=== PATIENT | male | born 1935 | race Caucasian/White ===

== ENCOUNTER 2020-09-22 11:20 | Inpatient (IN) | payer MEDICARE ==
[~2020-09-22] VITALS: Ht 193 cm; Wt 81.7 kg
[~2020-09-22 11:20] MED LIST: RXHYDACE PO; RXPHEN200 PO; RXSULTRIDS PO; SULTRIDS PO
[2020-09-22 12:00] LABS: BASOPHILS ABSOLUTE AUTO 0.01 K/mm3 (0.00-0.23); BASOPHILS PERCENT AUTO 0 % (0-2); EOSINOPHILS PERCENT AUTO 0 % (0-6); Hematocrit 28.7 % (37.0-53.0); Hemoglobin 8.9 g/dL (13.5-17.5); IMMATURE GRAN ABSOLUTE AUTO 0.02 K/mm3 (0.00-0.10); IMMATURE GRAN PERCENT AUTO 0 % (0-1); LYMPHOCYTES ABSOLUTE AUTO 0.51 K/mm3 (0.84-5.20); LYMPHOCYTES PERCENT AUTO 7 % (21-46); MONOCYTES ABSOLUTE AUTO 0.43 K/mm3 (0.16-1.47); MONOCYTES PERCENT AUTO 6 % (4-13); Mean Corpuscular HGB 24.3 pg (26.0-34.0); Mean Corpuscular Volume 78 fL (80-100); Mean Platelet Volume 9.1 fL (9.1-12.4); NEUTROPHILS PERCENT AUTO 88 % (41-73); Platelet Count 344 K/mm3 (150-400); RDW Coefficient Variation 15.6 % (11.7-14.2); RDW Standard Deviation 44.5 fL (35.1-46.3); Red Blood Cell Count 3.67 M/mm3 (4.30-5.90); White Blood Cell Count 7.77 K/mm3 (4.00-11.30)
[2020-09-22 12:39] LABS: Albumin/Globulin Ratio 0.6 (0.8-1.8); Bilirubin, Total 0.6 mg/dL (0.1-1.0); Bun/Creatinine Ratio 26.4 (12.0-20.0); Calcium, Blood 8.9 mg/dL (8.5-10.1); Creatinine, Blood 1.78 mg/dL (0.60-1.20); Globulin, Blood 4.8 g/dL (2.2-4.0); Potassium, Blood 4.1 mmol/L (3.5-5.5); Total Protein, Blood 7.8 g/dL (6.4-8.2)
[2020-09-22 14:57] LABS: Source, Urine Clean Catch
[2020-09-22 15:06] LABS: Appearance, Urine Hazy (Clear); Bilirubin, Urine Neg (Neg); Blood, Urine 5+ (Neg); Color, Urine Yellow (P-Yellow); Glucose Qualitative, Urine Neg (Neg); Ketones, Urine Neg (Neg); Leukocyte Esterase, Urine 3+ (Neg); Nitrite, Urine Pos (Neg); Protein, Urine 3+ (Neg); Urobilinogen, Urine NORM (Normal)
[2020-09-22 15:28] LABS: Bacteria Many /hpf; Hyaline Casts 0-2 /lpf (0-2); Red Blood Cells, Urine 0-2 /hpf (0-2); Squamous Epithelial Cells Few /hpf (Few); White Blood Cells, Urine 50-100 /hpf (0-5)
[2020-09-22 17:23] LABS: Creatine Kinase MB Index 0.2 (0.0-4.0)
--- NOTE | 2020-09-22 21:32 | NUR ---
STOOL AND URINE IN HIS OWN CLOTHES. RN NOTIFIED
--- NOTE | 2020-09-22 21:53 | NUR ---
2049 PT IS LYING IN BED, DENIES ANY DISCOMFORT AT THIS TIME. NO APPARENT SIGNS OF DISTRESS. PT'S IF INFILTRATED, DC'D IV, PT WILL NOT LET US RESTART AN IV AT THIS TIME OR RUN IV FLUIDS. I WILL CHECK BACK AGAIN LATER. CALL LIGHT IS IN REACH. BED ALARM IS ON.
--- NOTE | 2020-09-22 23:42 | NUR ---
2200 PT LYING IN BED, EYES CLOSED, APPEARS TO BE RESTING. BREATHING IS EVEN, UNLABORED. NO APPARENT SIGNS OF DISTRESS. CALL LIGHT IS IN REACH. BED ALARM IS ON.
--- NOTE | 2020-09-23 03:39 | NUR ---
PT IS AAO X 3-4, OCCASIONALLY FORGETFUL. ON RA. DENIED ANY DISCOMFORT FOR THIS SHIFT.
--- NOTE | 2020-09-23 05:28 | NUR ---
PT LYING IN BED, REQUESTED AND RECIEVED TYLENOL. TEMP OF 100.6 AND REPORT OF PAIN ALL OVER. PT STILL REFUSING TO GET AN IV, BUT DID ALLOW LAB TO DRAW BLOOD. NO OTHER APPARENT SIGNS OF DISTRESS. CALL LIGHT IS IN REACH. BED ALARM IS ON. NO OTHER CHANGES THIS SHIFT.
[2020-09-23 05:50] LABS: BASOPHILS ABSOLUTE AUTO 0.01 K/mm3 (0.00-0.23); BASOPHILS PERCENT AUTO 0 % (0-2); EOSINOPHILS PERCENT AUTO 0 % (0-6); Hematocrit 29.6 % (37.0-53.0); Hemoglobin 8.9 g/dL (13.5-17.5); IMMATURE GRAN ABSOLUTE AUTO 0.02 K/mm3 (0.00-0.10); IMMATURE GRAN PERCENT AUTO 0 % (0-1); LYMPHOCYTES ABSOLUTE AUTO 0.84 K/mm3 (0.84-5.20); LYMPHOCYTES PERCENT AUTO 10 % (21-46); MONOCYTES ABSOLUTE AUTO 0.39 K/mm3 (0.16-1.47); MONOCYTES PERCENT AUTO 5 % (4-13); Mean Corpuscular HGB 23.5 pg (26.0-34.0); Mean Corpuscular HGB Conc 30.1 g/dL (31.5-36.5); Mean Corpuscular Volume 78 fL (80-100); Mean Platelet Volume 9.2 fL (9.1-12.4); NEUTROPHILS ABSOLUTE AUTO 6.97 K/mm3 (1.96-9.15); NEUTROPHILS PERCENT AUTO 85 % (41-73); Platelet Count 336 K/mm3 (150-400); RDW Coefficient Variation 15.6 % (11.7-14.2); RDW Standard Deviation 44.3 fL (35.1-46.3); Red Blood Cell Count 3.78 M/mm3 (4.30-5.90); White Blood Cell Count 8.23 K/mm3 (4.00-11.30)
[2020-09-23 06:27] LABS: Albumin, Blood 2.5 g/dL (3.4-5.0); Albumin/Globulin Ratio 0.6 (0.8-1.8); Bilirubin, Total 0.5 mg/dL (0.1-1.0); Bun/Creatinine Ratio 29.4 (12.0-20.0); Calcium, Blood 8.5 mg/dL (8.5-10.1); Creatinine, Blood 1.19 mg/dL (0.60-1.20); Globulin, Blood 4.5 g/dL (2.2-4.0); Potassium, Blood 3.8 mmol/L (3.5-5.5)
--- NOTE | 2020-09-23 19:31 | NUR ---
dr agreed to allow pt to continue to refuse to get an IV and changed medications to po, call light in reach, rm air, still very sensitive
--- NOTE | 2020-09-24 03:27 | NUR ---
SHIFT SUMMARY PT C/O DYSURIA AND PROLONGED TIME TO INITIATE A URINE STREAM AND EMPTY HIS BLADDER. BLADDER SCAN PERFORMED REVEALED 54ML IN BLADDER. PT REQUESTED AND RECEIVED TYLENOL 650 MG. TEMP 98.1 - 99.7. PT REPORTS SHAKING AND FEELING COLD, "FEEL LIKE I'M STANDING NAKED IN THE SNOW." VSS. SATING ABOVE 94% ON ROOM AIR. OCCASSIONAL DEEP COUGH THAT PRODUCES THICK SPUTUM. WILL CONTINUE TO MONITOR.
--- NOTE | 2020-09-24 04:07 | NUR ---
CORRESPONDENCE WITH PHYSICIAN PT C/O DYSURIA AND PAIN IN BLADDER AFTER VOIDING. RN PLACED CALL TO DR. CASTELLANOS TO REQUEST ORDER FOR PRN BLADDER SCAN. WILL UPDATE ORDERS.
[2020-09-24 04:58] LABS: Hematocrit 26.9 % (37.0-53.0); Hemoglobin 8.1 g/dL (13.5-17.5); Mean Corpuscular HGB 23.8 pg (26.0-34.0); Mean Corpuscular HGB Conc 30.1 g/dL (31.5-36.5); Mean Corpuscular Volume 79 fL (80-100); Mean Platelet Volume 9.3 fL (9.1-12.4); Platelet Count 283 K/mm3 (150-400); RDW Coefficient Variation 15.7 % (11.7-14.2); White Blood Cell Count 3.83 K/mm3 (4.00-11.30)
[2020-09-24 05:43] LABS: Bun/Creatinine Ratio 32.8 (12.0-20.0); Creatinine, Blood 1.16 mg/dL (0.60-1.20); Percent Saturation 3.6 % (20.0-50.0); Potassium, Blood 3.7 mmol/L (3.5-5.5)
--- NOTE | 2020-09-24 18:32 | NUR ---
STILL very sensitive to pain, still declining to have iv medication even when it was explained to him that it would enhance his chanced to meet his stated goal of getting well enough to get out. Dr requested that pt be assisted into a chair, pt stated the chair was to low for him to sit in or get out of, bed was higher and he was sitting on the side of it but he continued to insist that he could not stand because the chair was to low...... even though told he could just sit back on the bed, call light in reach, rm , will continue to monitor and treat until share report with noc nurse
--- NOTE | 2020-09-25 03:07 | NUR ---
PT IS RESTING IN BED. HE HAS NOT HAD A BM FOR 3 DAYS, BUT DENIES STOOL SOFTENERS OFFERED PER ORDERS. NO COMPLAINTS OF DYSURIA THIS SHIFT, C/O PAIN IN HIS LUNGS AND FEELING COLD. PT IS SATING ABOVE 94% ON ROOM AIR. LUNG SOUNDS ARE DIMINISHED BUT CLEAR. HE IS A&O X 2-3, REQUIRING REMINDERS OF WHY HE IS IN THE HOSPITAL. PT IS ABLE TO VOID USING A URINAL. WILL CONTINUE TO MONITOR.
--- NOTE | 2020-09-25 04:58 | NUR ---
SHIFT SUMMARY NO ACUTE CHANGES. PT C/O GENERALIZED PAIN, WHICH IS TREATED WITH TYLENOL PRN. VSS. ROOM AIR, SATING ABOVE 94%. OCCASSIONAL DEEP COUGH, NON PRODUCTIVE. ABLE TO VOID USING URINAL. WILL CONTINUE TO MONITOR.
--- NOTE | 2020-09-25 18:19 | NUR ---
alert and orintated to self and location but forgetful, able to talk into blood draw, denies declining it, still very sensitive squeezed rn's hand while glass washer worked quickly, stated the elastic band around his arm was too cold, call light in reach, rm air, refused to even try to move from bed today, will continue to monitor and treat until sbar given to noc nurse
--- NOTE | 2020-09-26 03:38 | NUR ---
RN APPLIED OXYGEN 1LPM VIA NC DUE TO PT'S SATS 89-90% ON ROOM AIR. PT STATED, "I DON'T LIKE PLASTIC IN MY BODY" AND "IT HURTS". AFTER EXPLAINING WHY THE OXYGEN WAS APPLIED, PT STATED, "I ALREADY HAVE PLENTY OF OXYGEN." NC LEFT CLOSE TO BEDSIDE WITHIN PT'S REACH. AT THIS TIME, PT IS NOT WEARING THE OXYGEN, CONTINUES TO SAT 89-90% ON ROOM AIR.
--- NOTE | 2020-09-26 04:08 | NUR ---
SHIFT SUMMARY PT CONTINUED TO HAVE SUBJECTIVE COMPLAINTS OF COLD - WARM BLANKETS APPLIED, THERMOSTAT INCREASED IN PT'S ROOM. STATES "IT HURTS EVERYWHERE." TREATED PAIN WITH TYLENOL PRN. NO SIGNIFICANT PO INTAKE, DRANK ONE ENSURE THIS SHIFT. NO TELE, NO IV ACCESS. VOIDS IN URINAL AND ATTENDS. WILL CONTINUE TO MONITOR UNTIL GIVING BEDSIDE REPORT TO ONCOMING DAY RN.
--- NOTE | 2020-09-26 17:22 | NUR ---
SHIFT SUMMARY PT APPEARS FATIGUED AND WITHDRAWN THIS SHIFT. HE STATES THAT "EVERYTHING HURTS" AND THAT HE "DOES NOT KNOW HOW HE CAN STAND" IN ORDER TO DISCHARGE. VSS. PERIODS OF CONFUSION AND ALTERED MENTAL STATUS. STATES THAT THE "TABLE HURTS". CALLS MADE TO BOTH [facility] AND [facility] IN ORDER TO SEA CAPTAIN THE PATIENT FOR DISCHARGE. PT UNSURE OF PHARMACY AND DOES NOT HAVE A PRIMARY CARE PROVIDER. WILL POSSIBLY DC TODAY. POSITIVE FOR COVID 19.
--- NOTE | 2020-09-27 04:34 | NUR ---
COMMERCIAL REAL ESTATE UNDERWRITER SUMMARY NO ACUTE CHANGES THIS SHIFT. PT AAOX2, PLEASANT AND FOLLOWS MOST DIRECTION. DOES NOT SEEM MOTIVATED TO GET OUT OF BED OR ASSIST WITH REPOSITIONING HOWEVER HE DOES MOVE AROUND IT BED ON HIS OWN QUITE FREQUENTLY. PT ALSO MOANS IN PAIN ANY TIME HE IS TOUCHED OR THINKS HE IS ABOUT TO BE TOUCHED. PT IS NOT ABLE TO EXPRESS WHERE HE HURTS SPECIFICALLY. REMAINS ON RA WITH AN OCCASIONAL DRY COUGH. CONTINENT/INCONTINENT. VSS, WILL CONTINUE TO MONITOR.
--- NOTE | 2020-09-27 12:38 | NUR ---
No Visit , door closed prayed for pt from outside the door.
[2020-09-27] MEDS ORDERED: CEFD300 PO (13:48)
--- NOTE | 2020-09-27 18:04 | NUR ---
DISCHARGE SUMMARY PT DISCHARGED HOME WITH HOME HEALTH AND PICKED UP BY [facility]. SENT HOME WITH WALKER FROM [facility]. [facility] TO SEE PT TOMORROW ABOUT PAYMENT FOR WALKER. [facility] TO SEE PT TOMORROW WELL. LAST ANTIBIOTIC GIVEN TO PT PRIOR TO DISCHARGE SO NO NEED TO CALL IN ANTIBIOTICS TO PHARMACY.
== END 2020-09-27 17:56 | disposition home health service (06) | DRG 91 ==
LOC: ER 11:20 → MEDS 11:21
PROVIDERS: Emergency Medicine; Internal Medicine; Student in an Organized Health Care Education/Training Program; ADMIT Internal Medicine
DX: G92 Toxic encephalopathy (principal); U07.1 COVID-19; N39.0 Urinary tract infection, site not specified; N17.9 Acute kidney failure, unspecified; M62.82 Rhabdomyolysis; R64 Cachexia; E86.0 Dehydration; B96.20 Unspecified Escherichia coli [E. coli] as the cause of diseases classified elsewhere; E86.1 Hypovolemia; I95.1 Orthostatic hypotension; D64.9 Anemia, unspecified; I49.1 Atrial premature depolarization; Z68.21 Body mass index [BMI] 21.0-21.9, adult
CPT/HCPCS: 36415; 70450; 71045; 80048; 80053; 81001; 82550; 82553; 82728; 83540; 83550; 85025; 85027; 87077; 87086; 87186; 93005; 93010; 96365; 96372; 97110; 97116; 97162; 97166; 97530; 99285-25; A9270; G0378; J0696; J1644; J7030

== ENCOUNTER → 2020-12-30 | Outpatient (CLI) | payer MEDICARE ==
[~2020-12-30] MED LIST changes: +CEFD300 PO
== END | disposition home or self-care (01) ==
LOC: LAB SHORT 08:59
DX: N39.0 Urinary tract infection, site not specified (principal)
CPT/HCPCS: 87086

== ENCOUNTER → 2021-01-25 | Outpatient (CLI) | payer MEDICARE | END | disposition home or self-care (01) | LOC: LAB SHORT 12:46 → LAB 12:46 | DX: N39.0 Urinary tract infection, site not specified (principal) | CPT/HCPCS: 87086 ==

== ENCOUNTER 2021-02-24 12:02 | Emergency (ER) | payer MEDICARE ==
[~2021-02-24] VITALS: Ht 177.8 cm; Wt 40.8 kg
[~2021-02-24 12:02] MED LIST changes: +CEPH500 PO
== END 2021-02-24 13:40 | disposition home or self-care (01) ==
LOC: ER 12:02
DX: I46.9 Cardiac arrest, cause unspecified (principal); F17.200 Nicotine dependence, unspecified, uncomplicated